=== PATIENT | male | born 1950 | race Caucasian/White ===

== ENCOUNTER 2020-05-19 08:08 | Outpatient (CLI) | payer MEDICARE, SELFPAY ==
[2020-05-19 08:30] LABS: Basophils Percent Auto 0.6 % (0.2-1.2); Eosinophils Absolute Auto 0.1 K/mm3 (0-0.3); Eosinophils Percent Auto 1.1 % (0-4.4); Hemoglobin 14.5 g/dL (14.0-18.0); Immature Granulocyte Absolute 0.02 K/mm3 (0.00-0.031); Immature Granulocyte Percent A 0.3 % (0-0.5); Lymphocytes Absolute Auto 0.74 K/mm3 (0.9-3.2); Lymphocytes Percent Auto 11.9 % (18.3-44.2); Mean Corpuscular HGB Conc 33.7 g/dl (32-36); Mean Corpuscular Hemoglobin 34.2 pg (26-34); Mean Corpuscular Volume 101.4 fl (80-100); Mean Platelet Volume 9.4 fl (7.4-10.4); Monocytes Absolute Auto 0.5 K/mm3 (0.1-0.6); Monocytes Percent Auto 7.4 % (2.6-8.5); Neutrophils Absolute Auto 4.9 K/mm3 (1.3-6.7); Neutrophils Percent Auto 78.7 % (45.5-73.1); Platelet Count Result 164 k/mm3 (150-375); Red Blood Count 4.24 M/mm3 (4.6-6.20); Red Cell Distribution Width 12.2 % (11.5-14.5); White Blood Count 6.2 K/mm3 (4.5-10.0)
[2020-05-19 08:33] LABS: Blood Urea Nitrogen 24 mg/dL (8-26); Carbon Dioxide 26 mmol/L (22-30); Chloride 104 mmol/L (98-109); Estimated Glomerular Filt Rate > 60; Glucose 140 mg/dL (70-105); Potassium 4.1 mmol/L (3.5-4.9); Sodium 142 mmol/L (138-146)
[2020-05-19 11:23] LABS: Alanine Aminotransferase 34 U/L (4-50); Alkaline Phosphatase 63 U/L (38-126); Anion Gap 13.3 mmol/L (7-16); Aspartate Amino Transferase 29 U/L (17-59); Bilirubin,Total 0.6 mg/dL (0.2-1.3); Blood Urea Nitrogen 25 mg/dL (9-20); Calcium 9.2 mg/dL (8.4-10.2); Carbon Dioxide 26 mmol/L (22-30); Chloride 105 mmol/L (98-107); Estimated Glomerular Filt Rate > 60; Glucose 142 mg/dL (75-110); Potassium 4.3 mmol/L (3.4-5.0); Sodium 140 mmol/L (137-145)
[2020-05-19 12:10] LABS: Prostate Specific Antigen < 0.1 ng/mL (< OR = 4.0)
== END 2020-05-19 08:09 | disposition home or self-care (01) ==
PROVIDERS: Visit Provider Internal Medicine Hematology & Oncology
DX: C61 Malignant neoplasm of prostate (principal)
CPT/HCPCS: 36415; 80048; 80053; 84153; 85025

== ENCOUNTER 2021-05-11 08:27 | Outpatient (CLI) | payer MEDICARE, SELFPAY ==
[2021-05-11 08:49] LABS: Basophils Percent Auto 0.5 % (0.2-1.2); Eosinophils Absolute Auto 0.1 K/mm3 (0-0.3); Eosinophils Percent Auto 1.2 % (0-4.4); Hematocrit 42.5 % (42.0-52.0); Hemoglobin 14.2 g/dL (14.0-18.0); Immature Granulocyte Absolute 0.01 K/mm3 (0.00-0.031); Immature Granulocyte Percent A 0.2 % (0-0.5); Lymphocytes Absolute Auto 0.78 K/mm3 (0.9-3.2); Lymphocytes Percent Auto 13.2 % (18.3-44.2); Mean Corpuscular HGB Conc 33.4 g/dl (32-36); Mean Corpuscular Volume 101.7 fl (80-100); Mean Platelet Volume 9.2 fl (7.4-10.4); Monocytes Absolute Auto 0.4 K/mm3 (0.1-0.6); Monocytes Percent Auto 6.6 % (2.6-8.5); Neutrophils Absolute Auto 4.6 K/mm3 (1.3-6.7); Neutrophils Percent Auto 78.3 % (45.5-73.1); Platelet Count Result 172 k/mm3 (150-375); Red Blood Count 4.18 M/mm3 (4.6-6.20); Red Cell Distribution Width 11.9 % (11.5-14.5); White Blood Count 5.9 K/mm3 (4.5-10.0)
[2021-05-11 08:59] LABS: Blood Urea Nitrogen 24 mg/dL (8-26); Carbon Dioxide 34 mmol/L (22-30); Chloride 101 mmol/L (98-109); Estimated Glomerular Filt Rate > 60; Glucose 127 mg/dL (70-105); Sodium 143 mmol/L (138-146)
[2021-05-11 11:27] LABS: Alanine Aminotransferase 38 U/L (4-50); Albumin Level 4.1 g/dL (3.5-5.1); Alkaline Phosphatase 70 U/L (38-126); Anion Gap 10 mmol/L (8-16); Aspartate Amino Transferase 31 U/L (17-59); Bilirubin,Total 0.6 mg/dL (0.2-1.3); Blood Urea Nitrogen 22 mg/dL (9-20); Calcium 9.7 mg/dL (8.4-10.2); Carbon Dioxide 30 mmol/L (22-30); Chloride 101 mmol/L (98-107); Estimated Glomerular Filt Rate > 60; Glucose 127 mg/dL (65-110); Potassium 4.2 mmol/L (3.4-5.0); Sodium 141 mmol/L (137-145)
[2021-05-11 11:48] LABS: Prostate Specific Antigen < 0.1 ng/mL (< OR = 4.0)
== END 2021-05-11 08:28 | disposition home or self-care (01) ==
LOC: ANHLAB 08:29
PROVIDERS: Visit Provider Internal Medicine Hematology & Oncology
DX: C61 Malignant neoplasm of prostate (principal)
CPT/HCPCS: 36415; 80048; 80053; 84153; 85025

== ENCOUNTER 2022-05-10 10:15 | Outpatient (CLI) | payer MEDICARE, SELFPAY ==
[2022-05-10 10:31] LABS: Basophils Percent Auto 0.5 % (0.2-1.2); Eosinophils Absolute Auto 0.1 K/mm3 (0-0.3); Hematocrit 43.3 % (42.0-52.0); Hemoglobin 14.2 g/dL (14.0-18.0); Immature Granulocyte Absolute 0.02 K/mm3 (0.00-0.031); Immature Granulocyte Percent A 0.3 % (0-0.5); Lymphocytes Absolute Auto 0.91 K/mm3 (0.9-3.2); Lymphocytes Percent Auto 12.5 % (18.3-44.2); Mean Corpuscular HGB Conc 32.8 g/dl (32-36); Mean Corpuscular Hemoglobin 34.1 pg (26-34); Mean Corpuscular Volume 103.8 fl (80-100); Mean Platelet Volume 9.4 fl (7.4-10.4); Monocytes Absolute Auto 0.6 K/mm3 (0.1-0.6); Monocytes Percent Auto 8.4 % (2.6-8.5); Neutrophils Absolute Auto 5.7 K/mm3 (1.3-6.7); Neutrophils Percent Auto 77.3 % (45.5-73.1); Platelet Count Result 169 k/mm3 (150-375); Red Blood Count 4.17 M/mm3 (4.6-6.20); White Blood Count 7.3 K/mm3 (4.5-10.0)
[2022-05-10 14:33] LABS: Alanine Aminotransferase 30 U/L (6-50); Albumin Level 4.3 g/dL (3.5-5.1); Alkaline Phosphatase 75 U/L (38-126); Anion Gap 7 mmol/L (8-16); Aspartate Amino Transferase 28 U/L (17-59); Bilirubin,Total 0.5 mg/dL (0.2-1.3); Blood Urea Nitrogen 27 mg/dL (9-20); Calcium 8.8 mg/dL (8.4-10.2); Carbon Dioxide 28 mmol/L (22-30); Chloride 105 mmol/L (98-107); Estimated Glomerular Filt Rate > 60; Glucose 98 mg/dL (65-110); Potassium 4.4 mmol/L (3.4-5.0); Sodium 140 mmol/L (137-145)
[2022-05-10 15:01] LABS: Prostate Specific Antigen < 0.1 ng/mL (< OR = 4.0)
== END 2022-05-10 10:16 | disposition home or self-care (01) ==
LOC: ANHLAB 10:17
PROVIDERS: Visit Provider Internal Medicine Hematology & Oncology
DX: C61 Malignant neoplasm of prostate (principal)
CPT/HCPCS: 36415; 80053; 84153; 85025

== ENCOUNTER 2022-08-02 14:17 | Outpatient (CLI) | payer MEDICARE, SELFPAY ==
--- NOTE | ~2022-08-02 | DEXA_ITS ---
Bone Density Report Name: OMAR GIRALDO Age: 71 Sex: Male Ethnicity: White Date of : 1950 Indication: screening for osteoporosis; height loss; cancer; postmenopausal Referring Provider: JENNIFER HA Study: Bone densitometry was performed. Exam Date: August 02, 2022 Accession number: [id number] Bone Density: Region BMD T-score Z-score Classification AP Spine(L1-L4) 0.701 -3.5 -2.6 Osteoporosis Femoral Neck (Left) 0.562 -2.7 -1.4 Osteoporosis Total Hip (Left) 0.647 -2.6 -1.8 Osteoporosis Femoral Neck (Right) 0.652 -2.0 -0.8 Osteopenia Total Hip (Right) 0.679 -2.3 -1.6 Osteopenia Total Hip Mean 0.663 -2.5 -1.7 Osteopenia World Health Organization criteria for BMD impression classify patients as: Normal (T-score at or above -1.0), Osteopenia (T-score between -1.0 and -2.5), or Osteoporosis (T-score at or below -2.5). 10-year Fracture Risk: FRAX not reported because: Some T-score for Spine Total or Hip Total or Femoral Neck at or below -2.5 Clinical Information Provided by Patient: Has used the following medications: Vitamin D, Calcium Has the following medical conditions: Cancer Patient maximum height was 67 Impression: The patient has osteoporosis, based on the Total Spine T-score. Discussion: HIGH RISK OF FRACTURE. BONE DENSITY IS UNDESIRABLY LOW AT ONE OR MORE SKELETAL SITES, CONSISTENT WITH OSTEOPOROSIS. ALSO, BONE DENSITY IS LOWER THAN EXPECTED FOR AGE, SEX AND RACE AT ONE OR MORE SKELETAL SITES; RECOMMEND A DILIGENT SEARCH FOR SECONDARY CAUSES OF BONE LOSS. This patient's lowest T-score meets the World Health Organization's (WHO) criteria for osteoporosis at one or more sites (T-score -2.5 or below). In untreated patients, the risk of osteoporotic fracture increases approximately two-fold for each 1.0 SD decrease in T-score. Low bone density is not the only risk factor for fracture; also consider factors such as patient's age, frailty or poor health, risk of falling, risk of injury, previous osteoporotic fracture, family history of osteoporosis, cigarette smoking, low body weight, etc. Not everyone with low bone mineral density has osteoporosis; osteomalacia and other metabolic bone disorders should also be considered. Patients who have osteoporosis should be evaluated for specific diseases and conditions (secondary causes) that may cause or contribute to bone loss. The National Osteoporosis Foundation (NOF) recommends pharmacologic intervention for men with BMD at this level (a T-score of -2.5 or below). Also, this patient's bone mineral density is below the range considered normal for healthy age-, sex and race-matched controls at least one site (Z-score -2.0 or below). This warrants careful evaluation for diseases and conditions that may contribute to accelerated bone loss. The patient s
== END 2022-08-02 14:18 | disposition home or self-care (01) ==
PROVIDERS: PCP Urology; Visit Provider Internal Medicine Hematology & Oncology
DX: M81.8 Other osteoporosis without current pathological fracture (principal); M81.0 Age-related osteoporosis without current pathological fracture; M85.851 Other specified disorders of bone density and structure, right thigh
CPT/HCPCS: 77080

== ENCOUNTER 2023-05-17 08:17 | Outpatient (CLI) | payer MEDICARE, SELFPAY ==
[2023-05-17 08:32] LABS: Basophils Percent Auto 0.5 % (0.2-1.2); Eosinophils Absolute Auto 0.1 K/mm3 (0-0.3); Eosinophils Percent Auto 1.5 % (0-4.4); Hemoglobin 14.7 g/dL (14.0-18.0); Immature Granulocyte Absolute 0.02 K/mm3 (0.00-0.031); Immature Granulocyte Percent A 0.3 % (0-0.5); Lymphocytes Absolute Auto 0.87 K/mm3 (0.9-3.2); Lymphocytes Percent Auto 14.2 % (18.3-44.2); Mean Corpuscular HGB Conc 34.2 g/dl (32-36); Mean Corpuscular Hemoglobin 34.2 pg (26-34); Mean Platelet Volume 8.9 fl (7.4-10.4); Monocytes Absolute Auto 0.4 K/mm3 (0.1-0.6); Monocytes Percent Auto 7.2 % (2.6-8.5); Neutrophils Absolute Auto 4.7 K/mm3 (1.3-6.7); Neutrophils Percent Auto 76.3 % (45.5-73.1); Platelet Count Result 162 k/mm3 (150-375); Red Cell Distribution Width 11.8 % (11.5-14.5); White Blood Count 6.1 K/mm3 (4.5-10.0)
[2023-05-17 09:43] LABS: Alanine Aminotransferase 32 U/L (6-50); Albumin Level 4.4 g/dL (3.5-5.1); Alkaline Phosphatase 71 U/L (38-126); Anion Gap 9 mmol/L (8-16); Aspartate Amino Transferase 33 U/L (17-59); Bilirubin,Total 0.6 mg/dL (0.2-1.3); Blood Urea Nitrogen 25 mg/dL (9-20); Calcium 9.4 mg/dL (8.4-10.2); Carbon Dioxide 30 mmol/L (22-30); Chloride 104 mmol/L (98-107); Estimated Glomerular Filt Rate > 60; Glucose 121 mg/dL (65-110); Sodium 143 mmol/L (137-145)
[2023-05-17 10:12] LABS: Prostate Specific Antigen < 0.1 ng/mL (< OR = 4.0)
== END 2023-05-17 08:18 | disposition home or self-care (01) ==
LOC: ANHLAB 08:20
PROVIDERS: PCP Urology; Visit Provider Internal Medicine Hematology & Oncology
DX: C61 Malignant neoplasm of prostate (principal)
CPT/HCPCS: 36415; 80053; 84153; 85025

== ENCOUNTER 2024-05-14 08:11 | Outpatient (CLI) | payer MEDICARE, SELFPAY ==
[2024-05-14 08:32] LABS: Basophils Percent Auto 0.5 % (0.2-1.2); Eosinophils Absolute Auto 0.1 K/mm3 (0-0.3); Eosinophils Percent Auto 1.3 % (0-4.4); Hemoglobin 14.3 g/dL (14.0-18.0); Immature Granulocyte Absolute 0.01 K/mm3 (0.00-0.031); Immature Granulocyte Percent A 0.2 % (0-0.5); Lymphocytes Percent Auto 14.4 % (18.3-44.2); Mean Corpuscular HGB Conc 33.3 g/dl (32-36); Mean Corpuscular Hemoglobin 34.8 pg (26-34); Mean Corpuscular Volume 104.6 fl (80-100); Mean Platelet Volume 9.5 fl (7.4-10.4); Monocytes Absolute Auto 0.4 K/mm3 (0.1-0.6); Monocytes Percent Auto 7.4 % (2.6-8.5); Neutrophils Absolute Auto 4.2 K/mm3 (1.3-6.7); Neutrophils Percent Auto 76.2 % (45.5-73.1); Platelet Count Result 146 k/mm3 (150-375); Red Blood Count 4.11 M/mm3 (4.6-6.20); Red Cell Distribution Width 11.8 % (11.5-14.5); White Blood Count 5.6 K/mm3 (4.5-10.0)
[2024-05-14 09:27] LABS: Alanine Aminotransferase 29 U/L (6-50); Albumin Level 4.2 g/dL (3.5-5.1); Alkaline Phosphatase 53 U/L (38-126); Anion Gap 7 mmol/L (4-12); Aspartate Amino Transferase 31 U/L (17-59); Bilirubin,Total 0.7 mg/dL (0.2-1.3); Blood Urea Nitrogen 25 mg/dL (9-20); Calcium 8.8 mg/dL (8.4-10.2); Carbon Dioxide 33 mmol/L (22-30); Chloride 100 mmol/L (98-107); Estimated Glomerular Filt Rate > 60; Glucose 99 mg/dL (65-110); Potassium 3.9 mmol/L (3.4-5.0); Sodium 140 mmol/L (137-145)
[2024-05-14 09:55] LABS: Prostate Specific Antigen < 0.1 ng/mL (< OR = 4.0)
== END 2024-05-14 08:12 | disposition home or self-care (01) ==
LOC: ANHLAB 08:13
PROVIDERS: PCP Urology; Visit Provider Internal Medicine Hematology & Oncology
DX: M81.8 Other osteoporosis without current pathological fracture (principal); C61 Malignant neoplasm of prostate
CPT/HCPCS: 36415; 80053; 84153; 85025

== ENCOUNTER 2024-11-12 07:24 | Outpatient (CLI) | payer MEDICARE, SELFPAY ==
--- NOTE | ~2024-11-12 | DEXA_ITS ---
Bone Density Report Name: OMAR GIRALDO Age: 73 Sex: Male Ethnicity: White Date of : 1950 Indication: senile osteoporosis; height loss; cancer; Referring Provider: JENNIFER HA Study: Bone densitometry was performed. Exam Date: November 12, 2024 Accession number: [id number] Bone Density: Region BMD T-score Z-score Classification AP Spine(L1-L4) 0.719 -3.4 -2.4 Osteoporosis Femoral Neck (Left) 0.588 -2.5 -1.2 Osteoporosis Total Hip (Left) 0.644 -2.6 -1.8 Osteoporosis Femoral Neck (Right) 0.674 -1.9 -0.6 Osteopenia Total Hip (Right) 0.697 -2.2 -1.4 Osteopenia Total Hip Mean 0.670 -2.4 -1.6 Osteopenia World Health Organization criteria for BMD impression classify patients as: Normal (T-score at or above -1.0), Osteopenia (T-score between -1.0 and -2.5), or Osteoporosis (T-score at or below -2.5). 10-year Fracture Risk: FRAX not reported because: Some T-score for Spine Total or Hip Total or Femoral Neck at or below -2.5 Previous Exams: Region Exam Age BMD T-score BMD Change BMD Change Date g/cm2 vs Baseline vs Previous AP Spine (L1-L4) 11/12/2024 73 0.719 -3.4 0.001 (0.1%)# 0.018 (2.5%) 08/02/2022 71 0.701 -3.5 -0.017 (-2.4%) -0.017 (-2.4%) 11/13/2019 68 0.718 -3.4 Total Hip(Left) 11/12/2024 73 0.644 -2.6 -0.125 (-16.3% -0.003 (-0.5%) 08/02/2022 71 0.647 -2.6 -0.122 (-15.9% -0.122 (-15.9% 11/13/2019 68 0.769 -1.7 Total Hip(Right) 11/12/2024 73 0.697 -2.2 -0.085 (-10.8% 0.019 (2.7%) 08/02/2022 71 0.679 -2.3 -0.103 (-13.2% -0.103 (-13.2% 11/13/2019 68 0.782 -1.7 *Denotes significance at 95% confidence level, LSC for AP Spine = 0.022 g/cm2, LSC for Total Hip = 0.027 g/cm2 # Denotes dissimilar scan types or analysis methods Clinical Information Provided by Patient: Has used the following medications: Vitamin D, Calcium Has the following medical conditions: Cancer Patient maximum height was 67 Impression: The patient has osteoporosis, based on the Total Spine T-score. No significant bone loss was observed. Discussion: HIGH RISK OF FRACTURE. BONE DENSITY IS UNDESIRABLY LOW AT ONE OR MORE SKELETAL SITES, CONSISTENT WITH OSTEOPOROSIS. ALSO, BONE DENSITY IS LOWER THAN EXPECTED FOR AGE, SEX AND RACE AT ONE OR MORE SKELETAL SITES; RECOMMEND A DILIGENT SEARCH FOR SECONDARY CAUSES OF BONE LOSS. This patient's lowest T-score meets the World Health Organization's (WHO) criteria for osteoporosis at one or more sites (T-score -2.5 or below). In untreated patients, the risk of osteoporotic fracture increases approximately two-fold for each 1.0 SD decrease in T-score. Low bone density is not the only risk factor for fracture; also consider factors such as patient's age, frailty or poor health, risk of falling, risk of injury, previous osteoporotic fracture, family history of osteoporosis, cigarette smoking, low body weight, etc. Not everyone with low bone mineral density has osteoporosis; osteomalacia and other metabolic bone disorders should also be considered. Patients who have osteoporosis should be evaluated for specific diseases and conditions (secondary causes) that may cause or contribute to bone loss. The National Osteoporosis Foundation (NOF) recommends pharmacologic intervention for men with BMD at this level (a T-score of -2.5 or below). Also, this patient's bone mineral density is below the range considered normal for healthy age-, sex and race-matched controls at least one site (Z-score -2.0 or below). This warrants careful evaluation for diseases and conditions that may contribute to accelerated bone loss. The patient should follow a healthful lifestyle (good nutrition with adequate calcium and vitamin D, and appropriate weight-bearing exercise). Follow-Up: Consider repeating this study in 2 years to reassess this patient's status, or sooner if there is some new clinical indication. Reported by: JULIENNE on 11/12/2024 8:02:00 AM. Reviewed, dictated and finalized at location AShaun ARBOLEDA
--- OUTSIDE RECORDS SUMMARY | 2024-11-15 11:34 | XMS_ITS | Clinical Summary ---
Author Organization [facility] Address [address] [place] [address] Care Team Providers Care Black Topper Name Role Phone Unknown, Notinfile Primary Care Provider Unavail able Allergies No known active allergies Medications methocarbamoL (ROBAXIN) 500 mg tablet Take 1 tablet (500 mg total) by mouth 3 (three) times a day as needed for muscle spasms 12 tablet 2021 Active Social History Tobacco Use Types Packs/Day Years Used Date Smoking Tobacco: Never Personal Safety Answer Date Recorded Getting School Help Needed Not on file 01/06 Sex and Gender Information Value Date Recorded Sex Assigned at Not on file Legal Sex Male 11:00 AM 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 Gender Identity Not on file Sexual Orientation Not on file Obstetrics History Last Filed Vital Signs Vital Sign Reading Time Taken Comments Blood Pressure 134/82 2021 7:52 AM DAIRY 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 Pulse 63 2021 7:52 AM DAIRY 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 Temperature 36.7 ??C (98 ??F) 2021 7:52 AM DAIRY 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 Respiratory Rate 16 2021 7:52 AM DAIRY 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 Oxygen Saturation 97% 2021 7:52 AM DAIRY 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 Inhaled Oxygen Concentration - - Weight 80.6 kg (177 lb 11.1 oz) 2021 7:52 AM DAIRY 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 Height 170.2 cm (5' 7 ) 2021 7:52 AM DAIRY 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 Body Mass Index 27.83 2021 7:52 AM DAIRY 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 Plan of Treatment Health Maintenance Due Date Last Done Comments Colon Cancer Screening-Colonoscopy 1950 Depression Screening 1950 Fall Risk Assessment 1950 Hepatitis C Screening 1950 DTaP/Tdap/Td Vaccine (1 - Tdap) 1960 Hepatitis B Screening 1967 Zoster Vaccine (1 of 2) 1999 Abdominal Aortic Aneurysm (A AA) Screen 2014 04/10/2013 Well Visit 65+ 2014 Influenza Vaccine (#1) 2024 , 07/27/2020, 08/04/2019, Additional history exists Pneumococcal vaccine 65+ Completed 12/01/2020, 11/0 06/2015 Procedures Procedure Name Priority Date/Time Associated Diagnosis Comments CT ABDOMEN PELVIS WO CONTRAST Routine 04/10/2013 1:37 PM CDT from Last 3 Months or Most Recently Relevant to Health Maintenance Results * CT Abdomen Pelvis WO Contrast (04/10/2013 1:37 PM CDT) Anatomical Region Laterality Modality Body N/A Computed Tomogra phy 04/10/2013 1:37 PM CDT Impressions 04/23/2013 2:00 PM CDT ??Essentially unremarkable CT of the abdomen and pelvis. ??No evidence of recurrent or residual malignancy. THIS IS AN ELECTRONICALLY VERIFIED REPORT 04/23/2013 1:48 PM: ??Phillip Mattson M.D. Phillip Mattson M.D. AR:jessy 02:04 PM 11:32 AM [EOD] Narrative 04/23/2013 2:00 PM CDT EXAMINATION: ??CT abdomen pelvis with and without contrast HISTORY: ??Prostate cancer follow up. ??Prostate resection in 2004. ??No current therapy. COMPARISON: ??None. TECHNIQUE: ??Following the IV administration of 100 mL of Omnipaque 350 via the right antecubital IV, helical CT sections were obtained through the abdomen and pelvis. ??Unenhanced initial images were also obtained. FINDINGS: ??Abdomen: ??Lung bases are clear. ??There is no pleural or pericardial effusion. The liver, gallbladder, spleen, pancreas, adrenal glands, and kidneys are unremarkable. ??The stomach and bowel reveal no obstruction, inflammation, or wall thickening. ??No enlarged lymph nodes or free fluid are seen. Pelvis: ??There is mild sigmoid diverticulosis without diverticulitis. ??The pelvic bowel and viscera are otherwise unremarkable. ??No enlarged lymph nodes. Review of the osseous structures reveals no suspicious lesion or fracture. Procedure Note Provider, MD Yaz - 03/11/2021 EXAMINATION: CT abdomen pelvis with and without contrast HISTORY: Prostate cancer follow up. Prostate resection in 2004. Nocurrent therapy. COMPARISON: None. TECHNIQUE: Following the IV administration of 100 mL of Omnipaque 350 viathe right antecubital IV, helical CT sections were obtained through theabdomen and pelvis. Unenhanced initial images were also obtained. FINDINGS: Abdomen: Lung bases are clear. There is no pleural orpericardial effusion. The liver, gallbladder, spleen, pancreas, adrenal glands, and kidneys are unremarkable. The stomach and bowel reveal no obstruction, inflammation,or wall thickening. No enlarged lymph nodes or free fluid are seen. Pelvis: There is mild sigmoid diverticulosis without diverticulitis. The pelvic bowel and viscera are otherwise unremarkable. No enlarged lymphnodes. Review of the osseous structures reveals no suspicious lesion orfracture. IMPRESSION: Essentially unremarkable CT of the abdomen and pelvis. No evidence of recurrent or residual malignancy. THIS IS AN ELECTRONICALLY VERIFIED REPORT 04/23/2013 1:48 PM: Phillip Mattson M.D. Phillip Mattson M.D. AR:jessy 02:04 PM 11:32 AM [EOD] Historical Provider MD HAGER CT PROCEDURES Final R esult from Last 3 Months or Most Recently Relevant to Health Maintenance Insurance [employer] MEDICARE Care Teams Black Topper Relationship Specialty Start Date End Date Unknown, Notinfile PCP - General 12/12/21
--- OUTSIDE RECORDS SUMMARY | 2024-11-15 11:34 | XMS_ITS | Clinical Summary ---
Author Organization [facility] Address [address], [facility] [address] [place] [address] Phone Care Team Providers Care Web Press Operator Helper Offset Name Role Phone Monico Kline DO Unavailable [phone] Doyle Graham MD Unavailable [phone] Allergies No known active allergies Medications lisinopril (PRINIVIL, ZESTRIL) 10 MG Tablet Take 10 mg by mouth daily. Active atorvastatin (LIPITOR) 40 MG Tablet Take 40 mg by mouth daily. Active fluticasone (FLONASE) 50 MCG/ACT Suspension 1-2 Sprays by Nasal route daily. Use in each nostril as directed. Active Loratadine 10 MG Capsule Take by mouth daily as needed. Active methocarbamol (ROBAXIN) 750 MG Tablet Take 750 mg by mouth 3 times daily as needed. Active traMADol (ULTRAM) 50 MG Tablet Take 50 mg by mouth 2 times daily as needed for Pain. Active Flaxseed, Linseed, (FLAX SEED OIL) 1000 MG Capsule Take by mouth daily. Active Calcium Carbonate (CALCIUM 600 PO) Take 2 Tabs by mouth daily. Active Cholecalcifero l (VITAMIN D) 2000 UNIT Tablet Take by mouth daily. Active Multiple Vitamins-Refinery Operator Alkylation als (MULTIVITAMIN PO) Take by mouth daily. Active aspirin EC 81 MG Tablet Delayed Response Take 81 mg by mouth daily. Active Potassium 99 MG Tablet Take by mouth daily. Active Menthol (COLD THERAPY PAIN RELIEF) 3.1 % Gel by Apply externally route as needed. Active TESTOSTERONE IM by Intramuscular route. Every six months Active Active Problems Problem Noted Date Diagnosed Date Osteoporosis 11/28/2017 Prostate cancer 11/28/2017 Immunizations Immunization Administration Dates Next Due Influenza Vaccine 08/19/2017 Family History Medical History Relation Name Comments Diabetes Mother Heart Disease Mother Relation Name Status Comments Mother Social History Tobacco Use Types Packs/Day Years Used Date Smoking Tobacco: Former Cigarettes 0.3 40 0 10/24/1964 - 10/24/2004 Smokeless Tobacco: Former Alcohol Use Standard Drinks/Week Comments Yes 0 (1 standard drink = 0.6 oz pur e alcohol) 8-10 beers twice weekly Sex and Gender Information Value Date Recorded Sex Assigned at Not on file Legal Sex Male 3:44 PM 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 Gender Identity Not on file Sexual Orientation Not on file Last Filed Vital Signs Vital Sign Reading Time Taken Comments Blood Pressure 122/74 12/05/2017 7:59 AM 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 Pulse 74 12/05/2017 7:59 AM 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 Temperature 36.3 ??C (97.3 ??F) 12/05/2017 7:59 AM CS T Respiratory Rate 18 12/05/2017 7:59 AM 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 Oxygen Saturation 98% 12/05/2017 7:59 AM 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 Inhaled Oxygen Concentration - - Weight 92.9 kg (204 lb 12.8 oz) 12/05/2017 7:59 AM 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 Height 170.2 cm (5' 7 ) 12/05/2017 7:59 AM 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 Body Mass Index 32.08 12/05/2017 7:59 AM 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 Plan of Treatment Health Maintenance Due Date Last Done Comments Hepatitis C Virus (HCV) Screening 1950 TdaP Immunization 1950 SARS-COV-2 Immunization (#1) 1954 Pneumococcal Immunization (5 0+ years) (1 of 2 - PCV) 1968 Zoster Immunization (1 of 2) 1968 Colonoscopy 1994 Colorectal Cancer Screening 1994 Cologuard 1999 Immunochemical Fecal Occult Blood 1999 Influenza Immunization (#1) 2024 08/19/2017 Respiratory Syncytial Virus (RSV) Immunization (Adult) (1 - 1-dose 75+ series) 2024 Hepatitis B Immunization Aged Out No longer eligible based on patient's age to complete this topic Meningococcal Immunization (ACWY) Aged Out No longer eligible based on patient's age to complete this topic Rotavirus Immunization Aged Out No lo nger eligible based on patient's age to complete this topic Care Teams Web Press Operator Helper Offset Relationship Specialty Start Date End Date Monico Kline DO Consulting Physician Oncology 11/28/17 Doyle Graham MD Urology 11/28/17
--- OUTSIDE RECORDS SUMMARY | 2024-11-15 11:34 | XMS_ITS ---
Author Organization [facility] Address [address], [facility] [address] [place] [address] Phone Care Team Providers Care Research Assoc Name Role Phone Monico Kline DO Unavailable [phone] Doyle Graham MD Unavailable [phone] Active Problems Problem Noted Date Diagnosed Date Osteoporosis 11/28/2017 Prostate cancer 11/28/2017 Current Treatment and Therapy Plans No current plan information found. Past Treatment and Therapy Plans ONCOLOGY SUPPORTIVE CARE Plan Name Start Date Discontinue Date Treatment Medications Discontinue Reason Plan Provider Cycles SUPPORT - RECLAST - CCSCI 12/05/2017 12/18/2020 No medications scheduled. Plan Clean Up Monico Kline, DO Treatment not started
--- OUTSIDE RECORDS SUMMARY | 2024-11-15 11:34 | XMS_ITS | Clinical Summary ---
Author Organization [facility] Address [address] [place] [address] Care Team Providers Care Svp Research And Strategic Analysis Name Role Phone Michael Nunez DO Primary Care Provider Allergies No known active allergies Medications lisinopril (PRINIVIL) 10 mg tablet Take 10 mg by mouth daily. Active atorvastatin (LIPITOR) 40 mg tablet Take 40 mg by mouth late in the day. Active fluticasone (FLONASE) 50 mcg/spray [place], Suspension Administer 2 Sprays in each nostril 1 time daily as needed for Rhinitis. Active loratadine (CLARITIN) 10 mg tablet Take 10 mg by mouth 1 time daily as needed for Allergies. Active menthol (BIOFREEZE, MENTHOL,) 4 % Gel Apply to affected area 1 time daily as needed. Active calcium as carbonate (CALTRATE) 1,500 mg (600 mg elemental) Tablet Take 1,200 mg by mouth daily. Active cholecalciferol, Vitamin D3, 2,000 unit Tablet Take 2,000 Units by mouth daily. Active multivitamin (DAILY-HAMZAH) tablet Take 1 Tablet by mouth daily. Active aspirin (ECOTRIN EC) 81 mg Tablet, Delayed Release (E.C.) Take 81 mg by mouth daily. Active Potassium 99 mg Tablet Take by mouth. Activ e flaxseed Oil 1,000 mg Capsule Take by mouth. Active Ca-D3-mag bs-wlpn-huy-maynor -bor (Calcium 600-D3 Plus, mag-zinc,) 600 mg calcium- 20 mcg-50 mg Tablet Take by mouth. Active amitriptyline (ELAVIL) 10 mg tablet Take 10 mg by mouth. 1 Active leuprolide acetate (ELIGARD, 6 MONTH, SUBCUT) Inject by subcutaneous injection. Active doxycycline hyclate (VIBRAMYCIN) 100 mg capsule TAKE 1 CAPSULE BY MOUTH TWICE DAILY FOR 10 DAYS 2 Active methocarbamoL (ROBAXIN) 500 mg tablet Take 500 mg by mouth. 2 Active alendronate (FOSAMAX) 70 mg tabletIndication s:Prostate cancer (CMS/HCC),Other osteoporosis without current pathological fracture TAKE 1 TABLET BY MOUTH WEEKLY WITH 8 OZ OF PLAIN WATER 30 MINUTES BEFORE FIRST FOOD, DRINK OR MEDS. STAY UPRIGHT FOR 30 MINS 12 Tablet 3 4 Active Active Problems Problem Noted Date Diagnosed Date Other osteoporosis without current pathological fracture 12/20/2017 Prostate cancer 12/20/2017 Encounters Date Type Department Care Team Description 11/14/2024 Orders Only [facility] Oncology and Hematology [facility] [address] [place] [id number] Burke Palmer MD 11/13/2024 External Device Data STL ABSTRACTION Provider, Abstract 11/06/2024 External Device Data STL ABSTRACTION Provider, Abstract 10/09/2024 Refill [facility] Oncology and Hematology [facility] [address] [place] [address] Burke Palmer MD Prostate cancer ([facility]); Other osteoporosis without current pathological fracture from Last 3 Months Family History Medical History Relation Name Comments Other Father Diabetes Mother Heart Disease Mother No Known Problems Sister 1 Other Sister 2 Relation Name Status Comments Father Mother Sister 1 Alive Sister 2 Social History Tobacco Use Types Packs/Day Years Used Date Smoking Tobacco: Former Cigarettes 0 12/20/1979 - 12/20/2004 Tobacco Cessation:Counseling Given: Not Answered Comments:smoked socially Alcohol Use Standard Drinks/Week Comments Yes 6 (1 standard drink = 0.6 oz pur e alcohol) Sex and Gender Information Value Date Recorded Sex Assigned at Not on file Legal Sex Male 10:04 AM MANAGER PEDIATRIC Gender Identity Not on file Sexual Orientation Not on file Last Filed Vital Signs Vital Sign Reading Time Taken Comments Blood Pressure 118/66 05/21/2024 9:42 AM CDT Pulse 79 05/21/2024 9:42 AM CDT Temperature 36.6 ??C (97.8 ??F) 05/21/2024 9:42 AM CD T Respiratory Rate 16 05/21/2024 9:42 AM CDT Oxygen Saturation 96% 05/21/2024 9:42 AM CDT Inhaled Oxygen Concentration - - Weight 70.8 kg (156 lb) 05/21/2024 9:42 AM CDT Height 170.2 cm (5' 7 ) 05/24/2022 9:52 AM CDT Body Mass Index 24.43 05/24/2022 9:52 AM CDT Plan of Treatment Upcoming Encounters Date Type Department Care Team (Late st Contact Info) Description 05/27/2025 10:00 AM CDT Office Visit [facility] Oncology and Hematology - [place] [address] [facility] [address] [place] [address] Burke Palmer MD [address] [facility] [address] [place] [address] Health Maintenance Due Date Last Done Comments DTAP/TDAP/TD VACCINES (1 - Tdap) 1968 FIT-DNA Q 3 years 1994 FIT/FOBT Q 1 year 1994 Flex Sig/CT Colonography Q 5 years 1994 ZOSTER VACCINE (1 of 2) 1999 INFLUENZA VACCINE (#1) 2024 , 07/27/2020, 07/27/2020, Additional history exists Medicare Advantage (MD) Preventative Visit/Annual Wellness Visit 10/24/2024 12/01/2020, 12/18/2018 RSV VACCINE (60+ or ) (1 - 1-dose 75+ series) 2024 COLORECTAL SCREENING 05/30/2033 05/30/2023 Colorectal Cancer Screening 05/30/2033 Abdominal Aortic Aneurysm (A AA) Screening Completed 2017, 2017, 2017, Additional history exists PNEUMOCOCCAL VACCINE 65+ YEARS Completed 12/01/2020 , 09/01/2015 Procedures Procedure Name Priority Date/Time Associated Diagnosis Comments NM BONE DENSITY Routine 11/12/2024 2:03 PM MANAGER PEDIATRIC from Last 3 Months Results * NM BONE DENSITY (11/12/2024 2:03 PM MANAGER PEDIATRIC) Anatomical Region Laterality Modality Other us Burke Palmer MD NM ORDERABLES Final Result from Last 3 Months Insurance [id number] [id number] Care Teams Svp Research And Strategic Analysis Relationship Specialty Start Date End Date [place] [address] PCP - General Family Practice 05/29/18
--- OUTSIDE RECORDS SUMMARY | 2024-11-15 11:34 | XMS_ITS | Referral Summary ---
Author Organization [facility] Address [address] [place] [address] Care Team Providers Care Inspector Printed Circuit Boards Name Role Phone Unknown, Notinfile Primary Care [...] on file Legal Sex Male 11:00 AM UX DEVELOPER DESIGNER Gender Identity Not on file Sexual Orientation Not on file Last Filed Vital Signs Vital Sign Reading Time Taken Comments Blood Pressure 134/82 2021 7:52 AM UX DEVELOPER DESIGNER Pulse 63 2021 7:52 AM UX DEVELOPER DESIGNER Temperature 36.7 ??C (98 ??F) 2021 7:52 AM UX DEVELOPER DESIGNER Respiratory Rate 16 2021 7:52 AM UX DEVELOPER DESIGNER Oxygen Saturation 97% 2021 7:52 AM UX DEVELOPER DESIGNER Inhaled Oxygen Concentration - - Weight 80.6 kg (177 lb 11.1 oz) 2021 7:52 AM UX DEVELOPER DESIGNER Height 170.2 cm (5' 7 ) 2021 7:52 AM UX DEVELOPER DESIGNER Body Mass Index 27.83 2021 7:52 AM UX DEVELOPER DESIGNER Plan of Treatment Not on file Procedures Procedure Name Priority Date/Time Associated Diagnosis [...] M.D. AR:jessy 02:04 PM 11:32 AM [EOD] us Historical Provider MD HAGER CT PROCEDURES Final R esult from Last 3 Months or Most Recently Relevant to Health Maintenance Insurance MEDICARE Care Teams Inspector Printed Circuit Boards Relationship Specialty Start Date End Date Unknown, Notinfile PCP - General 12/12/21
== END 2024-11-12 07:25 | disposition home or self-care (01) ==
LOC: ANHIMG 07:25
PROVIDERS: PCP Urology; Visit Provider Internal Medicine Hematology & Oncology
DX: M81.8 Other osteoporosis without current pathological fracture (principal); M85.851 Other specified disorders of bone density and structure, right thigh
CPT/HCPCS: 77080

== ENCOUNTER 2025-09-16 10:40 | Outpatient (CLI) | payer MEDICARE, SELFPAY ==
[2025-09-16 11:07] LABS: Hematocrit 44.6 % (42.0-52.0); Hemoglobin 14.7 g/dL (14.0-18.0); Immature Granulocyte Percent A 0.3 % (0-0.5); Lymphocytes Absolute Auto 0.74 K/mm3 (0.9-3.2); Mean Corpuscular HGB Conc 33.0 g/dl (32-36); Mean Corpuscular Hemoglobin 33.8 pg (26-34); Mean Corpuscular Volume 102.5 fl (80-100); Nucleated Red Blood Cells Absolute Auto 0.000 K/mm3 (0.0-0.012); Nucleated Red Blood Cells Perc 0.0 % (0.0-0.2); Platelet Count Result 150 k/mm3 (150-375); Red Blood Count 4.35 M/mm3 (4.6-6.20); White Blood Count 7.3 K/mm3 (4.5-10.0)
[2025-09-16 11:28] LABS: Alanine Aminotransferase 27 U/L (6-50); Albumin Level 4.4 g/dL (3.5-5.1); Alkaline Phosphatase 59 U/L (38-126); Anion Gap 7 mmol/L (4-12); Aspartate Amino Transferase 31 U/L (17-59); Bilirubin,Total 0.7 mg/dL (0.2-1.3); Blood Urea Nitrogen 17 mg/dL (9-20); Calcium 9.0 mg/dL (8.4-10.2); Carbon Dioxide 28 mmol/L (22-30); Chloride 102 mmol/L (98-107); Estimated Glomerular Filt Rate > 60; Glucose 104 mg/dL (65-110); Potassium 4.1 mmol/L (3.4-5.0); Sodium 137 mmol/L (137-145); Total Protein 7.3 g/dL (6.3-8.2)
[2025-09-16 12:05] LABS: Prostate Specific Antigen < 0.1 ng/mL (< OR = 4.0)
--- OUTSIDE RECORDS SUMMARY | 2025-09-16 12:37 | XMS_ITS | Clinical Summary ---
Author Organization [facility] Address [address] [place] [address] Care Team Providers Care [employer] Advisor Name Role Phone Michael Nunez DO Primary Care Provider Allergies No known active allergies Medications lisinopril (PRINIVIL) 10 mg tablet Take 10 mg by mouth daily. Active atorvastatin (LIPITOR) 40 mg tablet Take 40 mg by mouth late in the day. Active fluticasone (FLONASE) 50 mcg/spray [place], Suspension Administer 2 Sprays in each nostril [...] Take 1,200 mg by mouth daily. Active cholecalciferol , Vitamin D3, 2,000 unit Tablet Take 2,000 Units by mouth daily. Active multivitamin (DAILY-HAMZAH) tablet Take 1 Tablet by mouth daily. Active aspirin (ECOTRIN EC) 81 mg Tablet, Delayed Release (E.C.) Take 81 mg by mouth daily. Active Potassium 99 mg Tablet Take by mouth. Activ e flaxseed Oil 1,000 mg Capsule Take by mouth. Activ e Ca-D3-mag jd-vilz-nkm-man g-bor (Calcium 600-D3 Plus, mag-zinc,) 600 mg calcium- 20 mcg-50 mg Tablet Take by mouth. Activ e amitriptyline (ELAVIL) 10 mg tablet Take 10 mg by mouth. 12/01/19 21 Active leuprolide acetate (ELIGARD, 6 MONTH, SUBCUT) Inject by subcutaneous injection. Active doxycycline hyclate (VIBRAMYCIN) 100 mg capsule TAKE 1 CAPSULE BY MOUTH TWICE DAILY FOR 10 DAYS 04/09/20 22 Active methocarbamoL (ROBAXIN) 500 mg tablet Take 500 mg by mouth. 12/12/19 22 Active alendronate (FOSAMAX) 70 mg tabletIndicatio ns:Prostate cancer (CMS/HCC),Other osteoporosis without current pathological fracture TAKE 1 TABLET BY MOUTH WEEKLY WITH 8 OZ OF PLAIN WATER 30 MINUTES BEFORE FIRST FOOD, DRINK OR MEDS. STAY UPRIGHT FOR 30 MINS 12 Tablet 3 09/16/20 25 Active alendronate (FOSAMAX) 70 mg tabletIndicatio ns:Prostate cancer (CMS/HCC),Other osteoporosis without current pathological fracture TAKE 1 TABLET BY MOUTH WEEKLY WITH 8 OZ OF PLAIN WATER 30 MINUTES BEFORE FIRST FOOD, DRINK OR MEDS. STAY UPRIGHT FOR 30 MINS 12 Tablet 3 10/10/20 24 2024 Discontinued Active Problems Problem Noted Date Diagnosed Date Other osteoporosis without current pathological fracture 12/20/2017 Prostate cancer 12/20/2017 Encounters Date Type Department Care Team Description 09/11/2025 Refill [facility] Oncology and Hematology - [place] [address] [place] [id number] Yadira Kathleen MD Prostate cancer (CMS/HCC); Other osteoporosis without current pathological fracture from Last 3 Months Family History Medical History Relation Name Comments Other Father Diabetes Mother Heart Disease Mother No Known Problems Sister 1 Other Sister 2 Relation Name Status Comments Father Mother Sister 1 Alive Sister 2 Social History Tobacco Use Types Packs/Day Years Used Date Smoking Tobacco: Former Cigarettes 25 0 12/20/1979 - 12/20/2004 Tobacco Cessation:Counseling Given: Not Answered Comments:smoked socially Alcohol Use Standard Drinks/Week Comments Yes 6 (1 standard drink = 0.6 oz pur e alcohol) Sex and Gender Information Value Date Recorded Sex Assigned at Not on file Legal Sex Male 10:04 AM 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 Gender Identity Not on file Sexual Orientation Not on file Last Filed Vital Signs Vital Sign Reading Time Taken Comments Blood Pressure 118/66 05/21/2024 9:42 AM CDT Pulse 79 05/21/2024 9:42 AM CDT Temperature 36.6 C (97.8 F) 05/21/2024 9:42 AM CDT Respiratory Rate 16 05/21/2024 9:42 AM CDT Oxygen Saturation 96% 05/21/2024 9:42 AM CDT Inhaled Oxygen Concentration - - Weight 70.8 kg (156 lb) 05/21/2024 9:42 AM CDT Height 170.2 cm (5' 7) 05/24/2022 9:52 AM CDT Body Mass Index 24.43 05/24/2022 9:52 AM CDT Plan of Treatment Upcoming Encounters Date Type Department Care Team (Late st Contact Info) Description 09/26/2025 2:30 PM AUDIT SPEC Office Visit [facility] Oncology and Hematology - [place] [address] [facility] [address] [place] [address] Burke Palmer MD [address] [facility] [address] [place] [address] Health Maintenance Due Date Last Done Comments DTAP/TDAP/TD VACCINES (1 - Tdap) 1968 FIT-DNA Q 3 years 1994 FIT/FOBT Q 1 year 1994 Flex Sig/CT Colonography Q 5 years 1994 ZOSTER VACCINE (1 of 2) 1999 Medicare Advantage (NE) Preventative Visit/Annual Wellness Visit 10/24/2024 12/01/2020, 12/18/2018 RSV VACCINE (60+ or ) (1 - 1-dose 75+ series) 2024 INFLUENZA VACCINE (#1) 2025 , 07/27/2020, 07/27/2020, Additional history exists COLORECTAL SCREENING 05/30/2033 05/30/2023 Colorectal Cancer Screening 05/30/2033 PNEUMOCOCCAL VACCINE 50+ YEARS Completed 12/01/2020 , 09/01/2015 Insurance [facility] [id number] Care Teams [employer] Advisor Relationship Specialty Start Date End Date Michael Nunez DO [address] [place] [id number] PCP - General Family Practice 05/29/18
--- OUTSIDE RECORDS SUMMARY | 2025-09-16 12:37 | XMS_ITS | Encounter Summary ---
Author Organization [facility] [facility] Address [address] [place] [address] Care Team Providers Care Pulmonary Function Technician Name Role Phone Michael Nunez DO Primary Care Provider Reason for Visit * Reason Comments Med Refill Encounter Details Date Type Department Care Team (Late Contact Info) Description 09/11/2025 Refill [facility] Oncology and Hematology [facility] [address] [place] [address] [address] [place] [address] Yadira Kathleen MD [address] [facility] [address] [place], [place] [id number] Prostate cancer (CMS/HCC); Other osteoporosis without current pathological fracture Social History Tobacco Use Types Packs/Day Years Used Date Smoking Tobacco: Former Cigarettes 25 0 12/20/1979 - 12/20/2004 Comments:smoked socially Alcohol Use Standard Drinks/Week Comments Yes 6 (1 standard drink = 0.6 oz pur e alcohol) Sex and Gender Information Value Date Recorded Sex Assigned at Not on file Legal Sex Male 10:04 AM PCU RN Gender Identity Not on file Sexual Orientation Not on file documented as of this encounter Plan of Treatment Upcoming Encounters Date Type Department Care Team (Late Contact Info) Description 09/26/2025 2:30 PM PCU RN Office Visit [facility] Oncology and Hematology [facility] [address] [place] [address] Burke Palmer MD [address] [facility] [address] [place] [address] documented as of this encounter Visit Diagnoses Diagnosis Prostate cancer (CMS/HCC) Malignant neoplasm of prostate Other osteoporosis without current pathological fracture documented in this encounter Care Teams Pulmonary Function Technician Relationship Specialty Start Date End Date Michael Nunez DO [address] [place] [id number] PCP - General Family Practice 05/29/18 documented as of this encounter
--- OUTSIDE RECORDS SUMMARY | 2025-09-16 12:37 | XMS_ITS | Clinical Summary ---
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 Gender Identity Not on file Sexual Orientation Not on file Last Filed Vital Signs Vital Sign Reading Time Taken Comments Blood Pressure 134/82 2021 7:52 AM [employer] DRIVER Pulse 63 2021 7:52 AM [employer] DRIVER Temperature 36.7 C (98 F) 2021 7:52 AM [employer] DRIVER Respiratory Rate 16 2021 7:52 AM [employer] DRIVER Oxygen Saturation 97% 2021 7:52 AM [employer] DRIVER Inhaled Oxygen Concentration - - Weight 80.6 kg (177 lb 11.1 oz) 2021 7:52 AM [employer] DRIVER Height 170.2 cm (5' 7) 2021 7:52 AM [employer] DRIVER Body Mass Index 27.83 2021 7:52 AM [employer] DRIVER Plan of Treatment Not on file Insurance [employer] MEDICARE Care Teams Fruit Or Nut Grower Relationship Specialty Start Date End Date Unknown, Notinfile PCP - General 12/12/21
--- OUTSIDE RECORDS SUMMARY | 2025-09-16 12:37 | XMS_ITS | Clinical Summary ---
Author Organization [facility] Address [address], [facility] [address] [place] [address] Phone Care Team Providers Care Cook [employer] Name Role Phone Monico Kline DO Unavailable [phone] Doyle Graham MD Unavailable [phone] Allergies No known active allergies Medications lisinopril [...] Tablet Take by mouth daily. Active Multiple Vitamins-Anson als (MULTIVITAMIN PO) Take by mouth daily. 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 Gender Identity Not on file Sexual Orientation Not on file Last Filed Vital Signs Vital Sign Reading Time Taken Comments Blood Pressure 122/74 12/05/2017 7:59 AM [employer] Pulse 74 12/05/2017 7:59 AM [employer] SUPER[employer]OR Temperature 36.3 C (97.3 F) 12/05/2017 7:59 AM [employer]OR Respiratory Rate 18 12/05/2017 7:59 AM [employer]OR Oxygen Saturation 98% 12/05/2017 7:59 AM [employer]OR Inhaled Oxygen Concentration - - Weight 92.9 kg (204 lb 12.8 oz) 12/05/2017 7:59 AM [employer] SU[employer]OR Height 170.2 cm (5' 7) 12/05/2017 7:59 AM [employer]OR Body Mass Index 32.08 12/05/2017 7:59 AM [employer]OR Plan of Treatment Health Maintenance Due Date Last Done Comments Hepatitis C Virus (HCV) Screening 1950 TdaP Immunization 1950 SARS-COV-2 Immunization (#1) 1954 Varicella Immunization (1 of 2 - 13+ 2-dose series) 1962 Pneumococcal Immunization (5 0+ years) (1 of 2 - PCV) 1968 Zoster Immunization (1 of 2) 1968 Cologuard 1994 Colonoscopy 1994 Colorectal Cancer Screening 1994 Immunochemical Fecal Occult Blood 1994 Respiratory Syncytial Virus (RSV) Immunization (Adult) (1 - 1-dose 75+ series) 2024 Influenza Immunization (#1) 2025 08/19/2017 Hepatitis B Immunization Aged Out No longer eligible based on patient's age to complete this topic Human Papillomavirus (HPV) Immunization Aged Out No longer eligible b ased on patient's age to complete this topic Meningococcal Immunization (ACWY) Aged Out No longer eligible based on patient's age to complete this topic Rotavirus Immunization Aged Out No lo nger eligible based on patient's age to complete this topic Care Teams Cook Cold Meat Relationship Specialty Start Date End Date Monico Kline DO Consulting Physician Oncology 11/28/17 Doyle Graham MD Urology 11/28/17
--- OUTSIDE RECORDS SUMMARY | 2025-09-16 12:37 | XMS_ITS ---
Author Organization [facility] Address [address], [facility] [address] [place] [address] Phone Care Team Providers Care Transplanter Name Role Phone Monico Kline DO Unavailable [phone] Doyle Graham MD Unavailable [phone] Active Problems Problem Noted Date Diagnosed Date [...]
== END 2025-09-16 10:41 | disposition home or self-care (01) ==
PROVIDERS: PCP Urology; Visit Provider Internal Medicine Hematology & Oncology
DX: C61 Malignant neoplasm of prostate (principal)
CPT/HCPCS: 36415; 80053; 84153; 85025; G0103